=== PATIENT | female | born 1950 | race Caucasian/White ===

== ENCOUNTER 2021-07-31 12:24 | Emergency (ER) | payer BC, MEDICARE ==
[~2021-07-31] VITALS: Ht 170.2 cm; Wt 78.0 kg
[~2021-07-31 12:24] MED LIST: ALPR1TAB2; AMLO10TA4; CANA300T; CETI-233; DULO60CA45; ESOM20CA; ESTR1TAB21; FAMO10TA41; GLIP10TA3; HYDR2TAB35; LISI20TA; MEDR2.5T; ONDA8TAB6; TRAM50TA; VIT1TABL66
--- NOTE | 2021-07-31 12:30 | NUR ---
AT BED SIDE
--- NOTE | 2021-07-31 12:45 | NUR ---
[id number], from home, c/o palpitations while working and c/o dizziness, BS 211. PLACE ON BED. AAOX4, NOT IN DISTRESS BREATHING SPONTANEOUSLY SATURATING AT 97%RA, ATTACHED TO MONITOR ND-81 SINUS RHYTHYM.
--- NOTE | 2021-07-31 12:50 | NUR ---
BLOOD DRAWN AND SENT TO LAB
[2021-07-31 12:55] LABS: BASOPHILS # (AUTO) 0.1 K/uL (0.0-0.2); BASOPHILS % (AUTO) 0.8 % (0.0-2.0); EOSINOPHILS % (AUTO) 1.4 % (0.0-6.0); HEMATOCRIT 46 % (33-45); LYMPHOCYTES # (AUTO) 2.5 K/uL (0.8-4.8); LYMPHOCYTES % (AUTO) 22.1 % (20.0-44.0); MEAN CORPUSCULAR HGB CONC 33 g/dl (31.0-36.0); MEAN CORPUSCULAR VOLUME 81 fL (82-100); MONOCYTES # (AUTO) 0.8 K/uL (0.1-1.30); MONOCYTES % (AUTO) 6.8 % (2.0-12.0); NEUTROPHILS # (AUTO) 7.7 K/uL (1.8-8.9); NEUTROPHILS % (AUTO) 68.9 % (43.0-81.0); PLATELET COUNT (AUTO) 357 K/uL (150-450); RED BLOOD CELL COUNT(AUTO) 5.72 MIL/uL (4.0-5.2); WHITE BLOOD COUNT (AUTO) 11.2 K/uL (4.3-11.0)
[2021-07-31] MEDS ORDERED: IV NS 0.9% 500 ML BAG IV ONE (13:00)
--- NOTE | 2021-07-31 13:00 | NUR ---
X-RAY TECH. AT BED SIDE
[2021-07-31 13:06] LABS: CALCIUM, SERUM 9.3 mg/dL (8.5-10.1); CARBON DIOXIDE 27 mmol/L (21-32); CHLORIDE 97 mmol/L (98-107); CREATININE 0.9 mg/dL (0.6-1.3); GLUCOSE 183 mg/dL (74-106); POTASSIUM 4.1 mmol/L (3.5-5.1); SODIUM SERUM 133 mmol/L (136-145); UREA NITROGEN, BLOOD 36 mg/dL (7-18)
[2021-07-31 16:19] VITALS: BP 155/77
--- NOTE | 2021-07-31 16:19 | NUR ---
Patient discharged to home in stable condition. Written and verbal after care instructions given. Patient verbalizes understanding of instruction.IV removed. Catheter intact and site benign. Pressure and 4x4 applied to site. No bleeding noted.
== END 2021-07-31 16:19 | disposition home or self-care (01) ==
LOC: ER 12:41
DX: R00.2 Palpitations (principal); R07.89 Other chest pain; R42 Dizziness and giddiness; I10 Essential (primary) hypertension; G43.909 Migraine, unspecified, not intractable, without status migrainosus; E11.9 Type 2 diabetes mellitus without complications; M79.7 Fibromyalgia; F32.A Depression, unspecified; Z87.19 Personal history of other diseases of the digestive system; Z88.8 Allergy status to other drugs, medicaments and biological substances; Z79.899 Other long term (current) drug therapy
CPT/HCPCS: 36415; 70450; 71045; 80048; 84443; 84484 ×2; 85025; 93005 ×2; 96360; 99285; A6403; J7040